=== PATIENT | male | born 1945 | race Caucasian/White ===

== ENCOUNTER → 2016-10-31 | Outpatient (CLI) | payer MEDICARE, OTHER ==
[~2016-10-31] MED LIST: ALBUTEROL17 GM INH; ASPIRIN ENTERI325 M1 PO; CENTRUM SILVER1 EACH PO; CRESTOR PO; METOPROLOL SUCC25 MG PO; NORCO1 TAB 10/3 PO; RAMIPRIL10 MG PO; SPIRIVA RESPIMAT4 G1 INH; SYMBICORT INH
--- NOTE | ~2016-10-31 | US38 ---
[facility] A Service of [facility] RADIOLOGY TEXT RESULTS PATIENT: JOANA VILLEGAS LOCATION: [facility] : 47 UNIT #: [id number] AGE: [address]: MIS RAPHAEL APRN SEX: M ORDER DR: [id number] [facility] [address] [place], [place] [address] [id number] O MR#: [id number] Acc #: [id number] NAME: JOANA VILLEGAS : 1945 SEX: M STUDY DATE/TIME: 10/31/2016 13:39 UNIT: [facility] ROOM: STUDY DESCRIPTION: US Carotid W/Doppler Unilatera Attending Physician: Mis Raphael M.D. Referring Physician: Mis Raphael M.D. Ordering Physician: Mis Raphael M.D. Primary Care Physician: Emanuel Ramirez M.D. MEDICAL IMAGING REPORT This report is preliminary unless electronic signature is present EXAM Right carotid Doppler, 10/31/2016. HISTORY Right carotid stenosis, arteriosclerosis of right carotid artery, status post right carotid endarterectomy, 09/15/2016. Follow-up. Hypertension and hyperlipidemia. Evaluate for carotid stenosis. FINDINGS Grayscale carotid artery images were obtained, as well as Doppler wave form, spectral analysis, and color flow Doppler imaging. Examination was interpreted according to NASCET criteria. Peak systolic velocity in the right internal carotid artery was 56 cm/sec. Peak velocity in the right common and external carotid arteries was 64 cm/sec and 51 cm/sec, respectively. Antegrade blood flow is seen in the right vertebral artery. Mild calcified plaque was noted. IMPRESSION No hemodynamically significant stenosis within the right internal carotid artery. Dictated by... Cristo Flores M.D. THIS IS AN ELECTRONICALLY VERIFIED REPORT Cristo Flores M.D. at 11/01/2016 8:21 AM STEVE/jaime TD: 10/31/2016 18:45 JOB #: [id number] [facility] A Service [facility] RADIOLOGY TEXT RESULTS PATIENT: JOANA VILLEGAS LOCATION: [facility] : 47 UNIT #: [id number] AGE: [address]: MIS RAPHAEL APRN SEX: M ORDER DR: MEDICAL IMAGING REPORT Page 1 of 1 COPY
== END | disposition home or self-care (01) ==
LOC: CNIV 13:22
DX: I65.23 Occlusion and stenosis of bilateral carotid arteries (principal)
CPT/HCPCS: 93882